=== PATIENT | male | born 1975 | race Caucasian/White ===

== ENCOUNTER 2018-07-29 14:41 | Inpatient (IN) ==
[2018-07-29] MEDS ORDERED: MORPHINE IV ONE (14:45)
--- NOTE | 2018-07-29 15:23 | Diag Imaging Result Doc PS360 ---
XRAY HIP W/PELVIS BILAT 3-4VWS - 07/29/2018 INDICATION: S/P FALL; SEVERE PAIN TECHNIQUE: Five views COMPARISON: None FINDINGS: There is a badly comminuted and displaced intertrochanteric fracture of the right proximal femur. There is a fixation plate at the posterior wall of the right acetabulum. No hardware fracture or loosening. No pelvis fracture. The left hip is intact. IMPRESSION: Comminuted, displaced intertrochanteric fracture of the right proximal femur. Electronically signed by Ike Beaulieu 07/29/2018 3:21 PM
[2018-07-29] MEDS ORDERED: DILAUDID IV ONE (15:42)
[2018-07-29 15:48] LABS: BASO# 0.02 X1000 (0.0-0.2); BASO% 0.2 % (0.0-0.8); EOS# 0.08 X1000 (0.0-0.7); EOS% 0.7 % (0.0-10.0); HEMATOCRIT 38.7 % (42.0-52.0); HEMOGLOBIN 12.9 g/dL (14.0-18.0); IMM GRAN# 0.05 X1000 (0.0-0.04); IMM GRAN% 0.4 % (0.0-0.5); LYMPH# 2.27 X1000 (1.2-3.4); LYMPH% 18.5 % (20.5-51.1); MCH 29.3 PG (27-31); MCHC 33.3 g/dL (33-37); MCV 87.8 FL (81-99); MONO# 0.52 X1000 (0.11-0.59); MONO% 4.2 % (1.7-9.3); MPV 10.9 FL (7.4-10.4); NEUT# 9.33 X1000 (1.4-6.5); PLT 383 X1000 (130-400); RBC 4.41 XMIL (4.7-6.1); RDW 12.7 % (11.5-14.5); WBC 12.27 X1000 (4.8-10.8)
[2018-07-29 15:52] LABS: INR 0.9; PROTIME 12.9 Seconds (11.0-16.0); PTT 26.5 Seconds (22.3-41.8)
[2018-07-29 16:10] LABS: AGAP 15; ALB/GLOB RATIO 1.3; ALBUMIN 3.7 g/dL (3.5-5.0); ALKALINE PHOSPHATASE 53 U/L (32-122); BUN 9 mg/dL (8-22); CHLORIDE 99 mmol/L (98-107); COSMO 277; CREATININE 0.8 mg/dL (0.7-1.2); ESTIMATED GFR > 60; GLUCOSE 105 mg/dL (70-104); GOT 36 U/L (10-34); GPT 23 U/L (10-44); POTASSIUM 3.7 mmol/L (3.5-5.1); SODIUM 139 mmol/L (136-145); TCO2 25 mmol/L (25-35); TOTAL BILIRUBIN 0.36 mg/dL (0.20-1.00); TOTAL PROTEIN 6.6 g/dL (6.3-8.3)
--- NOTE | 2018-07-29 16:12 | PROVIDER DOCUMENTATION ---
This chart was entered by Marguerite Owens Scribe, acting as scribe for Keyonna Guadalupe MD. HPI-Musculoskeletal Pain/Inj - GENERAL Chief Complaint: Hip Injury Stated Complaint: POSSIBLE HIP FX Time Seen by Provider: 07/29/18 14:44 Source: patient - HX OF PRESENT ILLNESS-MUSKULOSKELTAL Nature of Presenting Problem: 43yom with hx R hip surgery c/o 04/25 R hip pain since one hour just prior to arrival since this morning. He reports he fell in the bathroom this morning on his R side that resulted in R hip pain. He denies fever, chills, nausea, vomiting, diarrhea, cp, and sob. Quality of Pain: reports: aching Severity in ED: moderate, severe Onset/Duration: this morning (one hour prior to arrival) Timing: still present, constant Modifying Factors: improves with: nothing Similar Symptoms Previously?: No Recently seen or treated by another doctor?: No - FALL INJURY Location of Pain/Injury: reports: lower body (R hip) Pain Radiation: reports: no radiation Reason for Fall: reports: tripped Symptoms prior to fall:: reports: none Loss of Consciousness: no loss of consciousness Injury Associated Symptoms: denies: chest pain, nausea, vomiting Review of Systems - Adult - REVIEW OF SYSTEMS - ADULT Constitutional: denies: chills, fever Eyes: denies: discharge, dry eyes Ears, Nose, Mouth & Throat: denies: ear discharge, ear pain Cardiovascular: denies: chest pain, palpitations Respiratory: denies: cough, shortness of breath Gastrointestinal: denies: abdominal pain, diarrhea, nausea, vomiting Genitourinary: denies: dysuria, hematuria Musculoskeletal: reports: other (R hip pain). denies: back pain Integumentary: reports: no symptoms reported Neurological: denies: dizziness/vertigo, headache/migraines Psychiatric: reports: no symptoms reported Endocrine: reports: no symptoms reported Hematologic/Lymphatic: reports: no symptoms reported Allergic/Immunologic: reports: no symptoms reported All Other Systems: Reviewed and Negative Past History - Adult - PAST MEDICAL HISTORY-ADULT Review of Records: reports: Old Records Reviewed, Nursing Assessment Review, Medications Reviewed - PRIOR SURGERIES/PROCEDURES Surgical/Procedure History: reports: appendectomy, other (R hip) - IMMUNIZATION STATUS Childhood Immunizations: See Nurse Assessment Flu Vaccine: See Nurse Assessment - FAMILY HISTORY Family History: reviewed, not pertinent - SOCIAL HISTORY Smoking: cigarettes, less than 1 pack/day Substance Use: denies Living Situation: family Physical Exam-Injury Related - Physical Exam-Injury Related Initial Vital Signs Reviewed: Yes General Appearance: alert, severe distress Eyes: PERRL/EOMI, pink conjunctivae Neck: non-tender, supple Respiratory: chest non-tender, lungs clear, normal breath sounds, no pleuratic chest pain, no respiratory distress, no accessory muscle use Cardiovascular: normal peripheral pulses, regular rate, rhythm, no murmur Extremity: deformity (obvious deformity R side), tenderness (point tenderness), other (RLE externally rotated) Integumentary: normal color, warm/dry Neurologic: grossly normal, no motor/sensory deficits Psych/Mental Status: normal mood/affect, normal thought content, normal thought process, oriented x 3 - Glascow Coma Score Best Eye Response (Solon): (4) open spontaneously Best Verbal Response (Liz): (5) oriented Best Motor Response (Solon): (6) obeys commands Solon Total: 15 Progress - PLAN OF CARE/RESULTS Progress/Plan/Lab Results: Vital Signs - 8 hr 07/29/18 14:48 Temperature 96.5 F L Pulse Rate 63 Respiratory Rate 18 Blood Pressure 97/59 O2 Sat by Pulse Oximetry 100 Laboratory Results - last 24 hr 07/29/18 07/29/18 07/29/18 14:48 14:48 14:48 WBC 12.27 H RBC 4.41 L Hgb 12.9 L Hct 38.7 L MCV 87.8 MCH 29.3 MCHC 33.3 RDW Std Deviation 12.7 Plt Count 383 MPV 10.9 H Immature Gran % (Auto) 0.4 Neut % (Auto) 76.0 H Lymph % (Auto) 18.5 L Lares % (Auto) 4.2 Eos % (Auto) 0.7 Baso % (Auto) 0.2 Immature Gran # (Auto) 0.05 H Neut # (Auto) 9.33 H Lymph # (Auto) 2.27 Lares # (Auto) 0.52 Eos # (Auto) 0.08 Baso # (Auto) 0.02 PT 12.9 INR 0.90 PTT (Actin FS) 26.5 Sodium 139 Potassium 3.7 Chloride 99 Carbon Dioxide 25 Anion Gap 15 BUN 9 Creatinine 0.8 Estimated GFR/1.73 m2 > 60 BUN/Creatinine Ratio 11 Glucose 105 H Calculated Osmolality 277 Calcium 9.0 Magnesium 2.0 Total Bilirubin 0.36 AST 36 H ALT 23 Alkaline Phosphatase 53 Total Protein 6.6 Albumin 3.7 Globulin 2.9 Albumin/Globulin Ratio 1.3 Orders Category Date Time Status NPO Diet 07/30/18 00:01 Active CHEST-1 VIEW [RAD] Stat Exams 07/29/18 15:07 Taken XRAY HIP W/PELVIS BILAT 3-4VWS [RAD] Stat Exams 07/29/18 14:44 Completed CBC WITH ELECTRONIC DIFF [HEME] Stat Lab 07/29/18 14:48 Completed COMPREHENSIVE METABOLIC PANEL [CHEM] Stat Lab 07/29/18 14:48 Received MAGNESIUM [CHEM] Stat Lab 07/29/18 14:48 Received PROTIME WITH INR [COAG] Stat Lab 07/29/18 14:48 Completed PTT [COAG] Stat Lab 07/29/18 14:48 Completed Hydromorphone [Dilaudid] Med 07/29/18 15:42 Discontinued 1 mg IV NOW ONE Morphine Med 07/29/18 14:45 Discontinued 4 mg IV NOW ONE EKG [EKG] Stat Ther 07/29/18 16:10 Ordered Result Diagrams: 07/29/18 14:48 07/29/18 14:48 - REASSESSMENT Reassessment #1 Time Reassessed: 16:10 Status: other (SPOKE TO THE ORTHOPEDICS; DR. SMITH; WOULD LIKE HOSPITALIST FOR ADMISSION AND PREP FOR OR IN THE MORNING. WILL CALL HOSPITALIST.) - XRAY 1 XRAY Study: Pelvis, Hip Impression: Abnormal (FINDINGS: There is a badly comminuted and displaced intertrochanteric fracture of the right proximal femur. There is a fixation plate at the posterior wall of the right acetabulum. No hardware fracture or loosening. No pelvis fracture. The left hip is intact. IMPRESSION: Comminuted , displaced intertrochanteric fracture of the right proximal femur.) - CONSULTS/PCP/HOSPITALIST Notification #1 *Consult/PCP/Hospitalist*: Dr. Smith Time Discussed: 15:46 Consult Disposition: other (Dr. Smith will review the X-ray and call back) Departure - Departure Date of Disposition Decision: 01/13/19 Time of Disposition Decision: 16:11 DIAGNOSIS: Intertrochanteric fracture of right hip Disposition: ADMITTED INPATIENT 09 Certified Medical Emergency: Emergent Condition: Stable Additional Freetext Instructions: ED Follow Up Instructions: You have been treated by a care provider in the Emergency Department. These instructions are being provided to you so you can have an understanding of how to care for yourself upon discharge. Upon discharge from the Emergency Department, you are responsible for making arrangements for follow-up care by a physician of your choice. Take all prescribed medications as directed. Return to the Emergency Department immediately for any new or worsening symptoms. You may call the Physician Referral phone number at [phone] to obtain a list of Physicians who are taking new patients. Referrals and Follow-Ups: None,PCP [Primary Care Provider] - - Critical Care Note This patient required my direct & personal management of CC.: No Attestation - Physician/ RUBI Attestation Patient care was provided by Advanced Practice Provider:: No The physician spent face to face time with patient:: Yes Advanced Practice Provider documentation review:: Supervising physician onsite and consulted in the evaluation and care of this patient. The physician did have a face to face encounter with the patient. This chart was documented by the indicated scribe, (Marguerite Owens, Luis Daniel) and accurately reflects the services I performed and decisions made by me, Keyonna Guadalupe MD, as attested by the provider's signature.
[2018-07-29] MEDS ORDERED: DILAUDID ONE (16:14)
--- NOTE | 2018-07-29 16:17 | Diag Imaging Result Doc PS360 ---
CHEST-1 VIEW - 07/29/2018 INDICATION: preop COMPARISON: None FINDINGS: The lungs are normally expanded and clear. Heart size and mediastinal contours are normal. No pneumothorax or pleural effusion. IMPRESSION: Negative exam. Electronically signed by Ike Beaulieu 07/29/2018 4:14 PM
[2018-07-29] MEDS ORDERED: ZOFRAN IV PRN (16:51)
[2018-07-29] MEDS: DILAUDID IV PRN ×2 (17:59→21:32)
[2018-07-29] MEDS: NS 1,000 ML IV SCH (18:00)
[2018-07-29] MEDS ORDERED: NICODERM PATCH TD ONE (18:24)
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
[2018-07-30] MEDS: DILAUDID IV PRN ×6 (00:45→15:30)
[2018-07-30 06:10] LABS: INR 1.01; PROTIME 14.1 Seconds (11.0-16.0)
[2018-07-30 06:13] LABS: BASO# 0.01 X1000 (0.0-0.2); BASO% 0.1 % (0.0-0.8); EOS# 0.07 X1000 (0.0-0.7); EOS% 0.8 % (0.0-10.0); HEMATOCRIT 37.1 % (42.0-52.0); HEMOGLOBIN 12.2 g/dL (14.0-18.0); IMM GRAN# 0.02 X1000 (0.0-0.04); IMM GRAN% 0.2 % (0.0-0.5); LYMPH# 1.77 X1000 (1.2-3.4); LYMPH% 20.6 % (20.5-51.1); MCHC 32.9 g/dL (33-37); MCV 88.3 FL (81-99); MONO# 0.73 X1000 (0.11-0.59); MONO% 8.5 % (1.7-9.3); MPV 10.7 FL (7.4-10.4); NEUT# 6.01 X1000 (1.4-6.5); NEUT% 69.8 % (42.2-75.2); PLT 265 X1000 (130-400); RDW 13.1 % (11.5-14.5); WBC 8.61 X1000 (4.8-10.8)
[2018-07-30 06:48] LABS: AGAP 10; BUN 7 mg/dL (8-22); CALCIUM 8.3 mg/dL (8.8-10.2); CHLORIDE 104 mmol/L (98-107); COSMO 276; CREATININE 0.6 mg/dL (0.7-1.2); ESTIMATED GFR > 60; GLUCOSE 99 mg/dL (70-104); IRON SATURATION 14 %; POTASSIUM 4.2 mmol/L (3.5-5.1); SODIUM 139 mmol/L (136-145); TCO2 25 mmol/L (25-35); TIBC 209 ug/dL; TOTAL IRON 29 ug/dL (53-167); UNBOUND IRON 180 ug/dL (112-346)
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
[2018-07-30] MEDS: NS 1,000 ML IV SCH ×2 (07:21→23:04)
--- NOTE | 2018-07-30 08:15 | EKG Report ---
Test Performed on : 07/29/2018 4:39:33 PM Test Reason : CP Blood Pressure : / mmHG Vent. Rate : 055 BPM Atrial Rate : 055 BPM P-R Int : 152 ms QRS Dur : 084 ms QT Int : 434 ms P-R-T Axes : 032 056 050 degrees QTc Int : 415 ms Sinus bradycardia. Early repolarization Otherwise normal ECG No previous ECGs available Unconfirmed Result
--- NOTE | 2018-07-30 14:44 | PROGRESS NOTE ---
DATE: 07/30/2018 INTERVAL HISTORY: The patient is still with some hip pain but much improved on Dilaudid. Currently n.p.o. for surgery later today for repair of the broken hip. No new complaints. No acute events overnight. REVIEW OF SYSTEMS: A 12-point review of systems is negative except as per interval history. DIAGNOSTIC DATA: WBC is 8.6, hemoglobin 12.2, hematocrit 37.1. INR is 1.0. Basic metabolic panel unremarkable. Folate 11.8, iron 29, TIBC is 209, iron saturation 14%, ferritin 146. OBJECTIVE: Vital signs: T-max is 98.7, pulse 48, respirations 16, blood pressure 100/63, O2 saturation is 99% on room air. General: No acute distress. Vitals as above. HEENT: Normocephalic and atraumatic. Mucous membranes are moist. No cervical adenopathy. Cardiovascular: Remains mildly bradycardic but regular. No murmurs noted. Pulmonary: Clear to auscultation bilaterally with no wheezing, rales, or rhonchi. Abdomen: Soft, nontender, nondistended. Bowel sounds positive. Extremities: Peripheral pulses intact. Trace edema of right lower extremity remains. Pain with any movement at hip. Neurologic: Cranial nerves II through XII grossly intact. No focal deficits identified. Movement of right leg limited by pain. Psychiatric: Normal mood and affect. Awake, alert, and oriented x3. Skin: Multiple tattoos but no rashes or lesions identified. ASSESSMENT AND PLAN: 1. Right hip fracture after fall. Dr. Smith with Orthopedic Surgery consulted and plans for surgical repair later today. Continue IV fluids and monitor. 2. Anemia. Blood counts stable. No signs or symptoms of active bleeding. Iron levels most suggestive of anemia of chronic disease. Folate within normal limits. 3. Leukocytosis, likely reactive to hip fracture as above. No signs of infection. Now resolved. 4. Bradycardia. Remains in sinus bradycardia. No issues on telemetry. No need for further cardiac workup at this time. 5. Tobacco abuse. The patient was offered nicotine patch and tobacco cessation reinforced. 6. DVT prophylaxis. SCDs for now, as per Orthopedic after surgery.
[2018-07-30] MEDS ORDERED: XYLOCAINE-MPF 2% ONE (16:21)
[2018-07-30] MEDS ORDERED: DIPRIVAN 1% ONE (16:22)
[2018-07-30] MEDS ORDERED: KEFZOL 2 GM/D5W 2 GM/50 ML IVPB ONE (16:24)
[2018-07-30] MEDS ORDERED: FENTANYL ONE (16:58)
[2018-07-30] MEDS ORDERED: ZOFRAN ONE (17:04)
[2018-07-30] MEDS ORDERED: TORADOL ONE (17:04)
[2018-07-30] MEDS ORDERED: DILAUDID ONE (17:19)
[2018-07-30] MEDS ORDERED: ZOFRAN IV PRN (17:32)
[2018-07-30] MEDS: DILAUDID ONE ×4 (17:44→18:09)
[2018-07-30] MEDS: OXY IR PO PRN ×2 (20:11→23:04)
[2018-07-30] MEDS: COLACE PO SCH (20:23)
[2018-07-31] MEDS: KEFZOL 2 GM/D5W 2 GM/50 ML IVPB IV SCH ×2 (00:06→08:07)
--- NOTE | 2018-07-31 00:32 | OPERATIVE NOTE ---
PROCEDURE DATE: 07/30/2018 POSTOPERATIVE DIAGNOSIS: Right intertrochanteric femur fracture, with subtrochanteric extension. POSTOPERATIVE DIAGNOSIS: Right intertrochanteric femur fracture, with subtrochanteric extension. PROCEDURE: Right trochanteric femoral nailing. SURGEON: Dr. Lon Smith. DIP UNIT OPERATOR: Phoebe Chavez, nurse practitioner, who was an integral part of the case, helping with all aspects of the case, helping to increase our OR efficiency greatly. ANESTHESIA: General, with LMA. ESTIMATED BLOOD LOSS: 75 mL. IMPLANT: Synthes trochanteric femoral nail 11 x 400. DISPOSITION: To PACU, hemodynamically stable. INDICATION FOR PROCEDURE: Mr. Heredia is a 43-year-old male, incarcerated. Had a fall. Came in with an intertrochanteric femur fracture. I discussed with him about surgical intervention. He expressed understanding and wished to proceed. DESCRIPTION OF PROCEDURE: Mr. Heredia was identified in the preoperative holding area. The right hip was marked as the correct surgical site. He was then wheeled to the operating room, placed supine on the operating table. All bony prominences were well-padded. He was induced under general anesthesia. LMA was placed. He was then placed on the traction bed. Traction boots were applied. We put some slight traction across that right lower extremity. Surgical pause was performed. The right lower extremity was then prepped with chlorhexidine gluconate scrub and then ChloraPrep, and draped in normal sterile fashion. Surgical pause was performed. We identified the correct patient, the correct site, and the correct procedure. Preop antibiotics were given. Fluoroscopic imaging was used, which showed we had a good reduction in both AP and lateral views from the traction that we pulled. This started with an incision just proximal to the trochanter. Dissection was carried down through the deep fascia. I got my guidewire in position, advanced it. I then used my opening reamer, and then got my ball-tip guidewire down. I sequentially reamed to a size 12, and then placed an 11 x 400 Synthes trochanteric femoral nail down. I then used the guidewire and went up the femoral neck into the head, center-centered in both AP and lateral views. I measured that and then drilled and placed a helical blade center-centered in the femoral head. I then removed the outrigger guide. Final images were taken proximally, which showed that we had a really good reduction of the fracture and good position of all the hardware in both AP and lateral views. Came distal, and placed 2 interlocking screws via perfect [place] technique, 1 in the dynamic slot, 1 in the static slot. Final images showed we had good position in lateral view and AP view. I then irrigated everything copiously with normal saline. Zero Vicryl was used to close the deep layer, 2-0 Vicryl for the subcutaneous, and dallin on the skin. Adaptic, 4 x 4s, island dressings were applied. Traction was taken off. He was then moved to his own bed and taken to the PACU in stable condition. Postoperatively, he will be weightbear as tolerated in the right lower extremity. I will see him in the morning. cc: Lon Smith MD
[2018-07-31] MEDS: NS 1,000 ML IV SCH ×3 (01:10→16:56)
[2018-07-31] MEDS: OXY IR PO PRN ×5 (02:06→23:43)
[2018-07-31] MEDS: DILAUDID IV PRN ×6 (05:14→21:51)
[2018-07-31] MEDS: LOVENOX SUBQ SCH (05:15)
[2018-07-31 05:41] LABS: HEMATOCRIT 34.1 % (42.0-52.0); HEMOGLOBIN 11.1 g/dL (14.0-18.0)
[2018-07-31 06:01] LABS: AGAP 8; BUN 6 mg/dL (8-22); CALCIUM 7.5 mg/dL (8.8-10.2); CHLORIDE 103 mmol/L (98-107); COSMO 272; CREATININE 0.7 mg/dL (0.7-1.2); ESTIMATED GFR > 60; GLUCOSE 106 mg/dL (70-104); POTASSIUM 4.1 mmol/L (3.5-5.1); SODIUM 137 mmol/L (136-145); TCO2 26 mmol/L (25-35)
--- NOTE | 2018-07-31 07:23 | PROGRESS NOTE ---
DATE: 07/31/2018 SUBJECTIVE: Mr. Heredia is lying in bed this morning. Overall pain is tolerable, but it is hurting a pretty good bit, that right hip. OBJECTIVE: Right lower extremity exam: His dressings are clean, dry, and intact. He is neurovascularly intact, right lower extremity. He has good dorsiflexion, plantar flexion of the foot. Good sensation to light touch to the toes. ASSESSMENT: Status post right trochanteric femoral nailing. PLAN: Mr. Heredia is weight bear as tolerated right lower extremity. Physical therapy started working with him today. [facility] since they have a medical pastrana there at some point. I will see him back in about 2 weeks and we will get his dallin out at that time. We will get x-rays. cc: Lon Smith MD
[2018-07-31] MEDS: FERROUS SULFATE PO SCH (08:07)
--- NOTE | 2018-07-31 12:19 | PROGRESS NOTE ---
DATE: 07/31/2018 INTERVAL HISTORY: The patient is status post surgical repair of hip fracture. Reports some increased pain this morning which is improved but not completely relieved with Dilaudid. No other new complaints. No acute events overnight. REVIEW OF SYSTEMS: A 12-point review of systems is negative except as per interval history. DIAGNOSTIC DATA: Hemoglobin is 11.1, hematocrit 34.1. Basic metabolic panel unremarkable. OBJECTIVE: Vital signs: T-max is 98.8, pulse 76, respirations 16, blood pressure 104/63, O2 saturation is 97% on room air. General: No acute distress. Vitals as above. HEENT: Normocephalic and atraumatic. Moist mucous membranes. No cervical adenopathy. Cardiovascular: Regular rate and rhythm. No murmurs, rubs, or gallops. Pulmonary: Clear to auscultation bilaterally but no wheezing, rales or rhonchi. Abdomen: Soft, nontender and nondistended. Bowel sounds present. Extremities: Peripheral pulses intact. Right hip bandaged. The bandage is clean, dry, and intact. Neurologic: Cranial nerves II through XII are grossly intact. No focal deficits identified. Right hip movement limited by pain. Psychiatric: Normal mood and affect. Awake, alert, and oriented x3. Skin: No new rashes or lesions identified. ASSESSMENT AND PLAN: 1. Right hip fracture after fall, status post surgical repair by Dr. Smith yesterday. Just pain medications. Continue IV fluids and monitor. 2. Anemia. Blood counts with only minimal expected drop after surgery. No signs or symptoms of active bleeding. Iron levels suggest anemia of chronic disease at baseline. Monitor labs. 3. Leukocytosis, likely reactive to hip fracture and resolved on recheck. 4. Bradycardia. Normal sinus rhythm currently but frequently with sinus bradycardia. The patient is relatively young and in good health. No need for further cardiac workup at this time. 5. Tobacco abuse. The patient was offered nicotine patch and again reinforced tobacco cessation. 6. DVT prophylaxis as per Orthopedic Surgery. Currently on Lovenox.
[2018-07-31] MEDS: COLACE PO SCH (19:50)
[2018-08-01] MEDS: NS 1,000 ML IV SCH ×3 (00:55→12:25)
[2018-08-01] MEDS: COLACE PO SCH (00:55)
[2018-08-01] MEDS: DILAUDID IV PRN ×4 (02:10→14:02)
[2018-08-01 03:50] VITALS: BP 110/65
[2018-08-01] MEDS: OXY IR PO PRN ×2 (03:55→11:23)
[2018-08-01] MEDS: LOVENOX SUBQ SCH (05:23)
[2018-08-01 05:39] LABS: HEMOGLOBIN 10.9 g/dL (14.0-18.0)
[2018-08-01] MEDS: FERROUS SULFATE PO SCH (08:40)
--- NOTE | 2018-08-01 10:37 | PROGRESS NOTE ---
DATE: 08/01/2018 SUBJECTIVE DATA: Mr. Heredia is laying in bed. He states he is having quite a bit of pain. He says he is unable to get out much because of his pain. OBJECTIVE DATA: Right lower extremity exam: His incision is clean, dry, and intact. Everything looks good. He has good sensation to the lower limb. He is a little bit resistant to follow any commands, but he can flex and extend at the knee. ASSESSMENT: Status post right trochanteric femoral nailing. PLAN: From orthopedic standpoint, he can be full weightbearing as tolerated. I did instruct him that the first few days are going to be painful, but he needs to work through it. The most important thing for him to do is to get up to mobilize. This will help prevent any postop complications. I have encouraged him to get up and work with physical therapy. Once he is discharged, the plan will be for him to go back [facility]. He can be full weightbearing when he is there. We will need to follow up with him in 2 weeks to get his dallin out. I will continue to follow him while he is in the hospital. His biggest problem is going to be pain control. Dictated by FAHEEM Hurd for Lon Smith MD cc: FAHEEM Hurd MD
[2018-08-01] MEDS ORDERED: OXY IR PO PRN (11:52)
--- NOTE | 2018-08-02 08:18 | DISCHARGE SUMMARY ---
ADMISSION DATE: 07/29/2018 DISCHARGE DATE: 08/01/2018 CONSULTATIONS: Dr. Smith with Orthopedics. PERTINENT PROCEDURES: 1. Hip/pelvis x-ray: Communicated and displaced intertrochanteric fracture of the right proximal femur. 2. Right trochanteric femoral nailing performed by Dr. Lon Smith. DISCHARGE DIAGNOSES: 1. Status post right trochanteric femoral nailing by Dr. Lon Smith. From an orthopedic standpoint, he can be full weightbearing as tolerated. He was instructed by Orthopedics that the first few days are going to be painful, but he will need to work through it and continue to get up and mobilize. This will help prevent any postoperative complications. He has been working with Physical Therapy. His plan is to go back to [facility], where he can continue to be full weightbearing, and he will follow up with Dr. Smith in 2 weeks to get dallin out. 2. Anemia. No signs or symptoms of active bleeding. Iron levels suggest anemia of chronic disease. He is at his baseline. 3. Leukocytosis, likely reactive from hip fracture, resolved on recheck. 4. Bradycardia, normal sinus rhythm, but frequently with sinus bradycardia. He is relatively young and in good health. No need for any further cardiac workup at this time. 5. Tobacco abuse. The patient was offered nicotine patch, and reiterated tobacco cessation. 6. Deep venous thrombosis prophylaxis, on Lovenox. HOSPITAL COURSE: Briefly, Mr. Heredia is a 43-year-old gentleman who is in [facility] with essentially no past medical history. He presented to the ED with right hip pain after a fall in the bathroom. He states he twisted and fell directly on his right hip. On initial evaluation in the ED, he was found to have on x-ray, a [*] fracture of the right proximal femur. We were asked to admit for medical management. He underwent an orthopedic evaluation, and had a right trochanteric femoral nailing with Dr. Lon Smith. He has been working with physical therapy. He is full weightbearing as tolerated. Again, he was instructed that the first few days are going to be painful, but he needs to work through it. The most important thing was for him to get up and mobilize to help prevent any postop complications. He is being discharged back to [facility]. VITAL SIGNS AT TIME OF DISCHARGE: Temperature is 98.1 degrees, heart rate 73, respirations 24, blood pressure 110/65, O2 is 97% on room air. DISCHARGE DIET: Regular. DISCHARGE MEDICATIONS: 1. Roxicodone 30 mg p.o. every 3 hours p.r.n. 2. Colace 200 mg p.o. every p.m. p.r.n. 3. Xarelto 10 mg p.o. daily for 35 days. FOLLOWUP: Mr. Heredia is being discharged back to [facility]. He continues to be full weightbearing to that right lower extremity. He will need to continue to mobilize to prevent any postop complications. Take all medications as prescribed. Follow up with Dr. Lon Smith in 2 weeks to remove his dallin. He will return to the ED or call 911 for any worsening of symptoms. Dictated by FAHEEM Roberts for Ovi Garcia MD cc: Lon Smith MD
== END 2018-08-01 15:44 | DRG 482 ==
LOC: ED 14:41 → 4N 16:58
PROVIDERS: ADMIT Internal Medicine; ATTEND Internal Medicine
CPT/HCPCS: 71010; 71045; 73522; 76000; 80048; 80053; 82728; 82746; 83540; 83550; 83735; 85014; 85018; 85025; 85610; 85730; 86850; 86900; 86901; 93005; 94761; 94799; 96374; 96375; 97116; 97162; 97530; 99285; A9270; J0690; J1170; J1650; J1885; J2270; J2405; J3010; J7030